=== PATIENT | female | born 1950 | race African-American/Black ===

== ENCOUNTER 2016-09-14 13:51 | Emergency (ER) | payer MEDICARE, BC ==
--- NOTE | ~2016-09-14 | EKG ---
PATIENT: MANPREET MARTÍNEZ UNIT #: [id number] Ventricular Rate: 61 BPM Atrial Rate: 61 BPM P-R Interval: 156 ms QRS Duration: 72 ms Q-T Interval: 432 ms QTC Calculation(Bezet): 434 ms P Ransom: 55 degrees Calculated R Ransom: -12 degrees Calculated T Ransom: 13 degrees Diagnosis Line: Normal sinus rhythm Diagnosis Line: Low voltage QRS Diagnosis Line: Cannot rule out Anterior infarct , age Diagnosis Line: undetermined Diagnosis Line: Abnormal ECG Diagnosis Line: Diagnosis Line: Confirmed by MARIYA NICHOLAS MD ([id number]) on Diagnosis Line: 09/16/2016 11:59:46 PM INTERPRETING MD: [id number] GIANG
[2016-09-14 13:48] LABS: POC - CKMB <1.0 ng/mL (0.0-7.9); POC - TROPONIN <0.05 ng/mL (<=0.05)
== END 2016-09-14 15:35 | disposition home or self-care (01) ==
LOC: CFTX 13:51
PROVIDERS: Nurse Practitioner Family
DX: M25.511 Pain in right shoulder (principal); I10 Essential (primary) hypertension; F17.210 Nicotine dependence, cigarettes, uncomplicated; Z90.49 Acquired absence of other specified parts of digestive tract; Z90.710 Acquired absence of both cervix and uterus; Z88.5 Allergy status to narcotic agent; Z88.6 Allergy status to analgesic agent
CPT/HCPCS: 82553; 84484; 93005; 96372; 99283; J1885